=== PATIENT | female | born 1955 | race Two or more races ===

== ENCOUNTER 2021-09-04 21:41 | Emergency (ER) | payer OTHER ==
[~2021-09-04] VITALS: Ht 152.4 cm; Wt 62.4 kg
[2021-09-04] MEDS ORDERED: CRES10 MT (21:54)
[2021-09-04] MEDS ORDERED: LEVOTHYROXINE (21:56)
[2021-09-04] MEDS ORDERED: IBUPROFEN 600MG TABLET PO ONE (23:00)
[2021-09-05] MEDS ORDERED: IBUP-2028 MT (01:42)
[2021-09-05 01:50] VITALS: BP 127/76
== END 2021-09-05 01:55 | disposition home or self-care (01) ==
LOC: ER 21:41
DX: S09.8XXA Other specified injuries of head, initial encounter (principal); W18.39XA Other fall on same level, initial encounter; Y93.89 Activity, other specified; Y92.89 Other specified places as the place of occurrence of the external cause; Y99.8 Other external cause status; J45.909 Unspecified asthma, uncomplicated; E78.00 Pure hypercholesterolemia, unspecified; Z90.49 Acquired absence of other specified parts of digestive tract; M25.562 Pain in left knee
CPT/HCPCS: 70486; 73562; 99284